=== PATIENT | female | born 1975 | race Hispanic/Latino ===

== ENCOUNTER 2021-08-16 19:53 | Emergency (ER) | payer OTHER ==
[2021-08-17 17:36] LABS: SARS-CoV-2 PCR by NAA DETECTED (NotDetected)
== END 2021-08-16 20:50 | disposition home or self-care (01) ==
LOC: CSHERS 19:53
DX: U07.1 COVID-19 (principal); I10 Essential (primary) hypertension; Z79.899 Other long term (current) drug therapy
CPT/HCPCS: 87804; 99283; U0003; U0005